=== PATIENT | female | born 1970 | race Caucasian/White ===

== ENCOUNTER → 2016-12-05 | Outpatient (CLI) | payer OTHER ==
--- NOTE | 2016-12-06 09:34 | MR ---
MRI Lower Extremity, Left Foot History: Left foot pain. Evaluate for stress fracture. ICD 10 code M84.375A. Comparisons: None. Technique: MRI was performed of the left foot using a 1.5 [employer] MRI system. Sagittal, coronal, and ax ial imaging was obtained with standard imaging sequences. Findings: There is bone marrow edema along the diaphyseal shaft of the third metatarsal with perioste al edema. There is cortical thickening medially in the mid to distal diaphysis. A definite fracture l ine is not visualized. There is mild adjacent edema in the interosseous muscle along the diaphyseal s haft of the third metatarsal. The bone marrow edema is seen on both T1 and T2-weighted imaging. [place] form metatarsal articulation is unremarkable. There is mild hallux valgus and bunion deformity. Mild early degenerative change is seen in the first metatarsophalangeal joint with mild cartilage thinning . Subcortical cyst is seen in the metatarsal head. Degenerative signal and fraying are seen at the pl jeanette plate of the first metatarsophalangeal joint. No evidence for joint effusion. There is a thin fluid collection between the second and third metatar wily head. No evidence for soft tissue mass. Impression: 1. Grade 3 stress injury third metatarsal at the mid to distal diaphyseal shaft. 2. Mild hallux valgus and bunion deformity first metatarsophalangeal joint with mild degenerative amalia nge. 3. Minimal intermetatarsal bursitis between the second and third metatarsal head.
== END ==
LOC: FIMAGING 19:44
PROVIDERS: ATTEND Orthopaedic Surgery Foot and Ankle Surgery
DX: M84.375A Stress fracture, left foot, initial encounter for fracture (principal); M20.12 Hallux valgus (acquired), left foot; M21.612 Bunion of left foot; M77.52 Other enthesopathy of left foot and ankle